=== PATIENT | male | born 1945 | race Two or more races ===

== ENCOUNTER 2024-09-23 20:15 | Emergency (ER) | payer MEDICARE, OTHER, SELFPAY ==
[2024-09-23 20:18] VITALS: BP 181/88
--- NOTE | 2024-09-23 21:19 | ED.MUSCINJ ---
HPI-Injury
General
Chief Complaint: Musculo-Skeletal Complaint
Source: patient
Time Seen by Provider: 09/23/24 21:12
History of Present Illness-Injury
Initial Injury comments:
79yo right hand dominant male presenting with his son for evaluation after a fall 3 hours ago. 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 He landed on his L arm. He denies any head strike or LOC.
Patient is reporting left shoulder and elbow pain. No paresthesias. No headache, neck pain, back pain, or other complaints. Unknown last Tdap. He is not on any blood thinners.
Phy Exam
General Physical Exam
General Presentation: well appearing and no apparent distress
General age: appears stated age
General Skin: warm and dry
General Habitus: normal
General Mental: alert
ENT Exam
ENT Exam: normocephalic
Additional ENT: No external signs of head trauma. No C spine tenderness.
Pulmonary Exam
Pulmonary Exam: lungs clear, no respiratory distress, no crackles and no wheezing
Gastrointestinal Exam
Gastrointestinal Exam: non tender, soft and non distended
[place] Coma Scale
Eye Opening: Spontaneous
Verbal Response: Oriented
Motor Response: Obeys Commands
GCS Total Score: 15
Musculoskeletal Exam
Musculoskeletal Exam: other (L shoulder: No deformity or ecchymosis. No tenderness to palpation of the joint. ROM decreased 2/2 pain. ROM of elbow intact. 2+ radial pulse and sensation intact.)
Skin Exam
Skin Exam: normal color, warm/dry and other (Skin tear noted above L elbow)
Psychiatric Exam
Psychiatric Exam: normal mood/affect
Injury Course
Orders/Labs/Results
Orders:
Orders
09/23/24 21:19
CR Elbow - Left Min 3 Views Urgent
Comment:
Reason For Exam: Pain, fall
CR Humerus - Left Min 2 Views* Urgent
Comment:
Reason For Exam: Pain, fall
CR Shoulder - Left Min 2 View* Urgent
Comment:
Reason For Exam: Pain, fall
09/23/24 22:00
Tetanus/Diphth/Acelpertussis [Adacel] 0.5 ml IM .ONCE ONE
MDM/Problems Addressed
Differential Diagnosis Includes:
79yoM here with L shoulder pain after a mechanical fall. Also sustained a skin tear above the L elbow. No head injury or LOC. No deformity on exam. ROM decreased 2/2 pain. LUE is neurovascularly intact. Differential diagnosis includes but is not
limited to: fracture, dislocation, contusion, sprain, strain
Initial ED plan: Check L shoulder, humerus, and elbow x-rays. Update Tdap.
*Critical Care Note
Total Time (30-74mins, 75-104mins- exclusive of procedures): Not Applicable
Update Note
Update Note:
X-rays are negative for fractures. Supportive care discussed. Advised f/u with orthopedics if symptoms persist. He was discharged in stable condition with his son.
ED Attending Note
-
Portions of this chart may have been created with voice recognition software.� Occasional wrong word or��sound alike� substitutions may have occurred due to the inherent limitations of voice recognition software.
Discharge Plan
Departure
Patient Disposition: Home (Routine Discharge)
Date of Disposition: 09/23/24
Time of Disposition: 22:34
Patient with high blood pressure during this ER visit?: Yes
Discharge Problem:
Fall from slip, trip, or stumble, Left shoulder pain, Skin tear of left upper extremity
Instructions: Shoulder Pain ED
Referrals:
NONE,* [Family Provider] -
Leonardo Carbone MD [Active] -
Activity Restrictions/Additional Instructions:
Apply ice to affected area. Take Tylenol as needed for pain.
Please follow-up with orthopedics if symptoms persist.
Interventions
Interventions:
*Risk Screen - Suicide Last Done: 09/23/24 21:36
*General Assessment Last Done: 09/23/24 21:36
*Neglect/Abuse Screening Last Done: 09/23/24 21:36
ED- Fall Risk Assessment Last Done: 09/23/24 22:57
*ED COVID-19 Vaccine History Last Done: 09/23/24 21:36
*Nursing Disposition Last Done: 09/23/24 22:57
ED-Musculoskeletal Assessment Last Done: 09/23/24 21:36
Discharge Date and Time
Discharge Date/Time: 09/23/24 22:59
Print Language: BULGARIAN
[2024-09-23] MEDS: ADACEL 0.5 ML IM (22:11)
== END 2024-09-23 22:59 | disposition home or self-care (01) ==
LOC: EMR 20:15
PROVIDERS: EMERGENCY PHYSICIAN Emergency Medicine
DX: M25.522 Pain in left elbow (principal); S41.112A Laceration without foreign body of left upper arm, initial encounter; W01.0XXA Fall on same level from slipping, tripping and stumbling without subsequent striking against object, initial encounter; Z23 Encounter for immunization
CPT/HCPCS: 99283; 90471; 73030; 73060; 73080; 90715

== ENCOUNTER 2024-09-25 08:05 | Emergency (ER) | payer MEDICARE, OTHER, SELFPAY ==
[2024-09-25 08:22] VITALS: BP 151/68
--- NOTE | 2024-09-25 08:34 | ED.GENMED ---
History of Present Illness
General
Chief Complaint: Musculo-Skeletal Complaint
Source: patient
Exam Limitations: none
Time Seen by Provider: 09/25/24 08:26
History of Present Illness
History of Present Illness:
Patient tripped and fell days ago. Initially had pain at the left shoulder and proximal arm. These x-rays were unremarkable. However early this morning developed left wrist pain and swelling. No other injury or complaint. Denies chest pain
shortness of breath abdominal pain neck pain or
Past History
Past History
ED Past Medical History: HTN and Other (Prostatic hypertrophy)
ED Past Surgical History: Orthopedic and Other (Melanoma surgery mastoid surgery)
Review of Systems
Review of Systems
All Other Systems: Not applicable
Respiratory: Reports no symptoms
Cardiac: Reports no symptoms
ABD/GI: Reports no symptoms
Phy Exam
Physical Exam
Physical Exam:
General: Nontoxic appearing in no distress
Skin: Warm and dry, no rash
Neuro: Alert, nontoxic, grossly nonfocal
Psychiatric: Good eye contact and appropriate
Musculoskeletal: Patient unable to abduct the left shoulder. No tenderness. No clavicle tenderness. No AC tenderness. No humerus tenderness. No elbow tenderness. Good distal pulses and color. Swelling and tenderness of the left wrist mostly
mid wrist. Hand nontender. Small bandage to the left thumb from a previous basal cell. However no surrounding erythema or drainage.
Course
Orders/Labs/Results
Orders:
Orders
09/25/24 08:33
Wrist, Left 3 Views CR [CR Wrist - Left Min 3 Views] Urgent
Comment:
Reason For Exam: trauma
09/25/24 09:22
Hydrocodone 5/APAP 325 [[place] 5/325] 1 tablet PO NOW STA
09/25/24 09:24
Volar Left-Treatment ONCE
Vital Signs
Initial and Last Documented VS:
Initial Vital Signs
Temp Pulse Resp BP Pulse Ox
98.6 F 71 18 151/68 98
09/25/24 08:22 09/25/24 08:22 09/25/24 08:22 09/25/24 08:22 09/25/24 08:22
Last Documented Vital Signs
Temp Pulse Resp BP Pulse Ox
98.6 F 64 20 144/69 96
09/25/24 08:22 09/25/24 09:57 09/25/24 09:57 09/25/24 09:57 09/25/24 09:57
MDM/Problems Addressed
Differential Diagnosis Includes:
Patient will have an x-ray done of the left wrist.. In addition clinically he has a rotator cuff tear to the left shoulder that will require orthopedic follow-up
*Radiology
Radiology exam reviewed: preliminary read by ED provider (Chip fracture triquetrum)
*Pulse Oximetry
Patient hypoxic: no
*Critical Care Note
Total Time (30-74mins, 75-104mins- exclusive of procedures): Not Applicable
Update Note
Update Note:
Rotator cuff tear clinically. Triquetral fracture. Splint and follow-up
ED Attending Note
-
Portions of this chart may have been created with voice recognition software.� Occasional wrong word or��sound alike� substitutions may have occurred due to the inherent limitations of voice recognition software.
Discharge Plan
Departure
Patient Disposition: Home (Routine Discharge)
Date of Disposition: 09/25/24
Time of Disposition: 09:30
Patient with high blood pressure during this ER visit?: Yes
Discharge Problem:
Wrist fracture left, Left rotator cuff tear
Instructions: Rotator Cuff Injury (DC), Wrist fracture
Prescriptions:
New
hydrocodone-acetaminophen 5-300 mg tablet
1 tab PO Q6H PRN (Reason: Pain) Qty: 14 0RF
Referrals:
Yeimi Rodriguez I., DO [Active] - Follow up in 2-3 days
Nayla Barnes MD [Family Provider] -
Interventions
Interventions:
*Risk Screen - Suicide Last Done: 09/25/24 08:22
*General Assessment Last Done: 09/25/24 08:22
*Neglect/Abuse Screening Last Done: 09/25/24 08:22
ED- Fall Risk Assessment Last Done: 09/25/24 09:57
*ED COVID-19 Vaccine History Last Done: 09/25/24 09:24
*Nursing Disposition Last Done: 09/25/24 09:57
ED-Musculoskeletal Assessment Last Done: 09/25/24 09:25
Discharge Date and Time
Discharge Date/Time: 09/25/24 09:58
Print Language: SYRIAC
[2024-09-25 09:23] VITALS: BMI 45.3
[2024-09-25] MEDS: NORCO 5/325 1 TABLET PO (09:38)
[2024-09-25 09:57] VITALS: BP 144/69
== END 2024-09-25 09:58 | disposition home or self-care (01) ==
LOC: EMR 08:05
PROVIDERS: EMERGENCY PHYSICIAN Emergency Medicine; FAMILY PHYSICIAN Internal Medicine
DX: S62.112A Displaced fracture of triquetrum [cuneiform] bone, left wrist, initial encounter for closed fracture (principal); S46.012A Strain of muscle(s) and tendon(s) of the rotator cuff of left shoulder, initial encounter; W01.0XXA Fall on same level from slipping, tripping and stumbling without subsequent striking against object, initial encounter; I10 Essential (primary) hypertension; N40.0 Benign prostatic hyperplasia without lower urinary tract symptoms; Z85.820 Personal history of malignant melanoma of skin
CPT/HCPCS: 99283; 29125; 73110

== ENCOUNTER 2025-04-23 02:22 | Inpatient (IN) | payer MEDICARE, OTHER, SELFPAY ==
[2025-04-22 19:49] VITALS: BP 155/92
[2025-04-22 22:30] VITALS: BP 146/102
--- NOTE | 2025-04-22 22:30 | ED.GENMED ---
History of Present Illness
General
Chief Complaint: Cough
Source: patient
Exam Limitations: none
Time Seen by Provider: 04/22/25 22:07
Nursing documentation reviewed up to this point in time: agreed with
History of Present Illness
History of Present Illness:
This is an 80-year-old gentleman with history of hypertension, odz-mzovzbs-rdxkwilxo diabetes, BPH, hyperlipidemia, melanoma as well as osteoarthritis. He underwent melanoma removal from his back September 2020 for and is currently receiving monthly
injections of Opdivo, has completed 7 of 12 monthly rounds.
He complains of cough, congestion that began 2 days ago, progressively worse with onset of moderate dyspnea on exertion today. He denies fever nor chills, no chest pain or palpitations. No history of similar episodes in the past. Cough
occasionally productive of yellowish phlegm. He denies hemoptysis.
Evaluated at urgent care today and underwent chest x-ray reportedly showing pneumonia, was sent to the ED for further evaluation.
He has chronic bilateral lower extremity edema left leg greater than right and suffered an abrasion to his left anterior lower dale perhaps 2 weeks ago. Evaluated by his PCP and then shade matcher and was placed on a course of Keflex as well as
prednisone. Keflex finished this past weekend and prednisone completed Friday, 4 days ago. He notes elevated blood sugars while on prednisone but otherwise his diabetes has been well-controlled with most recent hemoglobin A1c of 6.6.
No history of chronic lung disease, lifelong non-smoker.
No history of CAD nor arrhythmia.
His daily medications include: Amlodipine, lisinopril, hydrochlorothiazide, metformin, hydralazine, finasteride, alfuzosin, a statin.
Past History
Past History
ED Past Medical History: Cancer (Melanoma removal from back September 2024.), HTN, Hypercholesterolemia and Other (Prostatic hypertrophy; osteoarthritis); Negative Arrthythmia, Asthma, CAD, CHF or COPD
ED Past Surgical History: Orthopedic (Left total knee replacement) and Other (Melanoma excision from back September 2024; mastoid surgery)
Social History
Tobacco: Non-smoker
Alcohol: None
Personal:
Living: with family
Employment: Retired
Family History
Family History: Other (Noncontributory)
Phy Exam
Physical Exam
Physical Exam:
GENERAL: 80-year-old overweight gentleman appears his stated age, bright and alert, pleasant, appears in no acute distress. Frequent moist nonproductive cough is noted. Mild resting tachypnea but able to speak in full sentences. Room air pulse ox
at rest 92%.
EYE: pupils equal and reactive. anicteric
NECK: Supple, nontender, no meningismus, no significant adenopathy. Mild JVD.
ENT: oral mucosa is moist. No rhinorrhea.
CARDIAC: Irregularly irregular at a rate of 90, no murmur.
LUNGS: Mild resting tachypnea, coarse expiratory wheezing throughout as well as fine rhonchi throughout.
ABDOMEN: Rotund, soft, nondistended, without focal tenderness, normoactive BS.
NEUROLOGICAL: Alert and oriented x3, no focal neuro deficits.
SKIN: Warm and dry, normal color, No rash.
MUSCULOSKELETAL: No clubbing or cyanosis, chronic appearing nonpitting edema bilateral lower extremities. 2 cm superficial dry ulcerations noted bilateral lower anterior shins. No surrounding erythema, no drainage, no tenderness. Peripheral
pulses are full and equal b/l. No palpable tenderness.
PSYCH: Normal and appropriate interaction.
Sepsis
Sepsis Screening
Sepsis Assessment: Sepsis Ruled Out
Sepsis Screen
Sepsis Screen: Sepsis Ruled Out
Date: 04/23/25
Time: 06:34
Course
Orders/Labs/Results
Orders:
Orders
04/22/25 19:53
EKG [Electrocardiogram (*1)] Stat
Reason for Study: Chest Pain
EKG- Treatment ONCE
04/22/25 22:29
Sputum Culture [Respiratory Culture/Gram Stain] Urgent
REBECCA Source: Sputum
Specimen Description:
Ipratropium/Albuterol Sulfate [Duoneb] 3 ml INH R NOW STA
04/22/25 22:33
Complete Blood Count/With Diff Urgent
Comprehensive Metabolic Panel Urgent
Lactic Acid Urgent
NT-proBNP Urgent
Troponin I Urgent
04/23/25 00:00
CR Chest - 2 Views Urgent
Reason For Exam: COUGH, SOB X 3 DAYS
04/23/25 00:54
Azithromycin [Zithromax] 500 mg PO NOW STA
CefTRIAXone [Rocephin] 2,000 mg IV NOW STA
Dexamethasone Sod Phosphate [Decadron] 10 mg IV NOW STA
Furosemide [Lasix] 40 mg IV NOW STA
Potassium Chloride [KCl] 40 meq PO NOW STA
04/23/25 02:00
Flush (0.9% Sodium Chloride) [Flush (Nss)] See Dose Instructions IV PER PROTOCOL
04/23/25 02:07
Admit/Transfer Patient As Directed
Co-Sign Provider:
Level of Care: Inpatient admission
Assign to:: Telemetry
Physician / Group: Ricky
Diagnosis: Pneumonia, A-Fib
Reason for Telemetry: Arrhythmia
Date to Stop Telemetry: 04/26/25
Time to Stop Telemetry: 11:00
Reason for Hospitalization: Pneumonia, A-Fib
Expected length of stay greater than two midnights?: Yes
ELOS- Estimated Length of Stay in days: 3
I certify the patient meets the requirements for IP care: Yes
PRN Pain Medication Management As Directed
May give lesser potent ordered pain med per pt: Yes
preference::
Protocol:: Medication orders for pain may be administered in a
manner that supports deferring to patient preference
when the pt is:
- Requesting an ordered lesser potent pain medication.
Least to most potent pain medications are defined
as: acetaminophen < NSAID < tramadol < opioids
(morphine, oxycodone, hydromorphone).
- Requesting a lesser dose of the same medication IF
ORDERED.
- Requesting a less intrusive route of administration
if both routes are prescribed by the provider (PO <
IV).
04/23/25 02:08
Code Status As Directed
Resuscitation Status: Full Code
04/23/25 04:25
Troponin I Q6H
Acetaminophen [Tylenol] 650 mg PO Q4HPRN PRN
Albuterol Nebs [Ventolin Nebules] 2.5 mg INH R Q4HPRN PRN
Dextrose 50%-Water [Dextrose 50% Syringe] 12.5 grams IV [id number] PRN
Glucagon [GlucaGen] 1 mg IM PRN PRN
04/23/25 04:25
Echo 2D MMode Doppler [Echo 2D MMode Color/Doppler] Routine
Reason for Study: A-Fib, SOB
CARDIOLOGY CONSULT Routine
Consulting Provider: Jose Manuel Pearl
Was physician already notified: No
Reason for consult: New A-Fib
Consult Notification Routine
Specialty to Notify: Cardiology
TSH Reflex To Free T4 Routine
Activity As Directed
Activity Level: Ambulate
With Assistance
Bedside Glucose Monitoring As Directed
Frequency: AC&HS
Additional Instructions:: Change to q6h if pt on TPN, tube feeding or not eating
EKG with chest pain [ECG as needed] As Directed
ECG as needed for:: Chest Pain
I/O [Intake/ Output] As Directed
Frequency: Per unit guidelines
Pneumatic Compression Sleeves As Directed
Type: Knee high
Vital Signs As Directed
Frequency: Per unit guidelines
Weight As Directed
Frequency: Daily
Chest PT [Rx Chest Pt] [RESP] Routine
Special Instructions: BID
Oxygen Therapy [O2 Therapy] [RESP] Routine
Titrate/Wean O2 to maintain O2 sat greater than (%): 94
DX Deep Vein Thrombosis Video Routine
04/23/25 06:00
EKG [Electrocardiogram (*1)] IN AM
Reason for Study: Chest Pain
Regular
At Your Request: Full Participation
Fluid Restriction: 1440 mL/day (48 oz)
Basic Metabolic Panel IN AM
Cardiovascular Evaluation IN AM
Complete Blood Count/No Diff IN AM
Glycohemoglobin (HgbA1c) IN AM
04/23/25 07:30
Insulin Aspart Corrective Low [Novolog Flexpen-Low Resistance] See Protocol SC AC
04/23/25 08:00
Apixaban [Eliquis] 5 mg PO BID
Doxycycline [Vibramycin] 100 mg PO Q12
Finasteride [Proscar] 5 mg PO DAILY
Furosemide [Lasix] 20 mg IV BID AT 0800,1600
Metoprolol Xl [Toprol Xl] 25 mg PO BID
Potassium Chloride Powder [Klor-Con] 20 meq PO BID
Tamsulosin [Flomax] 0.4 mg PO DAILY
04/23/25 10:25
Troponin I Q6H
04/23/25 16:25
Troponin I Q6H
04/24/25 00:00
CefTRIAXone [Rocephin] 1,000 mg IV Q24H
04/26/25 11:00
DC Protocol for Telemetry ONCE
Abnormal Lab Results
04/22/25
22:33
RBC 4.59 L 10^6/uL
(4.70-6.10)
Hgb 12.3 L g/dL
(13.0-18.0)
Hct 38.8 L %
(39.0-52.0)
MCH 26.8 L pg
(27.0-31.0)
MCHC 31.7 L g/dL
(33.0-37.0)
RDW 17.1 H %
(11.5-14.5)
Abs Immat Gran (auto) 0.1 H 10^3/uL
(0-0.05)
Absolute Monos (auto) 0.9 H 10^3/uL
(0.1-0.6)
Immature Gran % 1.0 H %
(0-0.5)
Lymphocytes % 15.1 L %
(20.5-51.1)
Monocytes % 10.6 H %
(1.7-9.3)
Eosinophils % 6.2 H %
(0-6)
Potassium 3.4 L mmol/L
(3.5-5.1)
BUN 24 H mg/dl
(9-20)
Glucose 141 H mg/dl
(70-99)
04/22/25 22:33
04/22/25 22:33
Vital Signs
Initial and Last Documented VS:
Initial Vital Signs
Temp Pulse Resp BP Pulse Ox
99.1 F 85 20 155/92 93
04/22/25 19:49 04/22/25 19:49 04/22/25 19:49 04/22/25 19:49 04/22/25 19:49
Last Documented Vital Signs
Temp Pulse Resp BP Pulse Ox
98.6 F 105 13 152/94 94
04/23/25 03:00 04/23/25 03:18 04/23/25 03:18 04/23/25 03:00 04/23/25 03:00
MDM/Problems Addressed
Differential Diagnosis Includes:
Concern for pneumonia, CHF, asthmatic bronchitis.
Borderline low-grade fever noted in triage, upon recheck oral temperature 98.6 �F. Patient has not had subjective fevers.
EKG shows atrial fibrillation with controlled ventricular response. Patient has no prior history of A-fib�at this point unclear as to onset of A-fib.
Borderline hypoxia with pulse ox at rest of 92%. Significant dyspnea with minimal exertion.
Patient noted to have bilateral lower extremity edema but chronic and unchanged. No prior hx of thromboembolism. DVT/PE unlikely.
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
Chronic conditions affecting care: DM, HTN and Cancer
*Radiology
Radiology exam reviewed: preliminary read by ED provider (Chest x-ray concerning for subtle infiltrate right base versus increased interstitial markings primarily bilateral lower lobes.)
*Pulse Oximetry
Patient hypoxic: no
Comment: Borderline hypoxia
*EKG
Interpreted by ED Provider?: Yes
Interpretation: abnormal
Comparison EKG: no comparison EKG present
Rate: normal
Rhythm: a-fib
[place]: left axis deviation
Interval: normal QT interval
QRS Pattern: normal QRS
Ischemia: non-specific ST changes
*[employer] Representative Interpretation
Rate: normal
Interpretation: abnormal
Rhythm: a-fib
*Critical Care Note
Total Time (30-74mins, 75-104mins- exclusive of procedures): Not Applicable
Update Note
Update Note:
Patient feeling improved after nebulizer treatment. Much less cough.
Continues with significant expiratory wheezing throughout bilaterally.
CBC shows normal white blood cell count, mild anemia. Unremarkable chemistries.
Troponin is normal at 0.013.
BNP elevated at 1580.
Chest x-ray concerning for an infiltrate in the right base versus increased interstitial markings most noted in the bases more so on the right than the left which could be element of CHF.
Will give an IV dose of Decadron for wheezing, initiate antibiotics for potential community-acquired pneumonia and will give an IV dose of Lasix for what I suspect is mild CHF.
Potassium 3.4, will replete orally prior to Lasix administration.
Will admit to hospitalist service.
ED Attending Note
-
Portions of this chart may have been created with voice recognition software.� Occasional wrong word or��sound alike� substitutions may have occurred due to the inherent limitations of voice recognition software.
Discharge Plan
Departure
Patient Disposition: Admit
Date of Disposition: 04/23/25
Time of Disposition: 01:01
Admit to: Telemetry
Admit to doctor: Ricky
Presentation/result/management discussed w/ accepting MD/DO: Hospitalist
Discharge Problem:
Acute bronchitis and bronchiolitis, Atrial fibrillation with controlled ventricular rate, CAP (community acquired pneumonia)
Interventions
Interventions:
*Risk Screen - Suicide Last Done: 04/22/25 19:49
*General Assessment Last Done: 04/22/25 22:54
*Neglect/Abuse Screening Last Done: 04/22/25 19:49
*ED- Fall Risk Assessment Last Done: 04/22/25 22:54
*ED COVID-19 Vaccine History Last Done: 04/22/25 22:54
*Nursing Disposition Last Done: 04/23/25 03:30
ED- Pulmonary Assessment Last Done: 04/22/25 23:00
Discharge Date and Time
Discharge Date/Time: 04/23/25 03:34
[2025-04-22 22:51] LABS: % Eosinophils 6.2 % (0-6); % Lymphocytes 15.1 % (20.5-51.1); % Monocytes 10.6 % (1.7-9.3); % Neutrophils 66.1 % (42.2-75.2); Absolute Basophils 0.1 10^3/uL (0-0.2); Absolute Eosinophils 0.5 10^3/uL (0-0.7); Absolute Immature Granulocytes 0.1 10^3/uL (0-0.05); Absolute Lymphocytes 1.2 10^3/uL (1.2-3.4); Absolute Monocytes 0.9 10^3/uL (0.1-0.6); Absolute Neutrophils 5.4 10^3/uL (1.4-6.5); Hematocrit 38.8 % (39.0-52.0); Hemoglobin 12.3 g/dL (13.0-18.0); Mean Corp Hgb Conc. 31.7 g/dL (33.0-37.0); Mean Corpuscular Hgb 26.8 pg (27.0-31.0); Mean Corpuscular Volume 84.5 fL (80.0-94.0); Mean Platelet Volume 9.1 fL (7.4-10.4); Nucleated Red Blood Cells % 0 % (-); Platelet Count 241 10^3/uL (130-400); Red Blood Cell Count 4.59 10^6/uL (4.70-6.10); Red Cell Dist. Width 17.1 % (11.5-14.5); White Blood Cell Count 8.1 10^3/uL (4.8-10.8)
[2025-04-22] MEDS: DUONEB 3 ML INH (22:52)
[2025-04-22 22:53] VITALS: BMI 44.3
[2025-04-22 22:54] VITALS: BP 160/93
[2025-04-22 23:00] VITALS: BP 150/84
[2025-04-22 23:03] LABS: ALT (SGPT) 20 U/L (0-50); AST (SGOT) 21 U/L (17-59); Albumin 3.8 g/dl (3.5-5.0); Alkaline Phosphatase 61 U/L (38-126); Blood Urea Nitrogen 24 mg/dl (9-20); Calcium 9.3 mg/dl (8.4-10.2); Carbon Dioxide 30 mmol/L (22-30); Chloride 104 mmol/L (98-107); Estimated Creatinine Clearance 71 ml/min; Glucose 141 mg/dl (70-99); Lactic Acid 0.8 mmol/L (0.7-2.0); Potassium 3.4 mmol/L (3.5-5.1); Sodium 139 mmol/L (135-145); Total Bilirubin 0.5 mg/dl (0.2-1.3); Total Protein 6.5 g/dl (6.3-8.2); eGFR > 60.00
[2025-04-22 23:14] LABS: NT-proBNP 1580 pg/ml; Troponin I 0.013 ng/ml
[2025-04-23] VITALS (9 sets, daily range): BP systolic 127–153; BP diastolic 71–95; BMI 43.6
[2025-04-23] MEDS: KCL 40 MEQ PO (01:10)
[2025-04-23] MEDS: ROCEPHIN 2000 MG IV (01:10)
[2025-04-23] MEDS: ZITHROMAX 500 MG PO (01:10)
[2025-04-23] MEDS: LASIX 40 MG IV (01:11)
[2025-04-23] MEDS: DECADRON 10 MG IV (01:11)
--- NOTE | 2025-04-23 02:12 | HPS.HSE ---
Family Physician
-
Family Physician: NOT KNOW UNKNOWN - PT DOES
Chief Complaint
-
Cough, SOB
History of Present Illness
Patient is an 80y M with PMH significant for hypertension, 'pre-DM' and melanoma on Opdivo who presents to ED complaining of cough and SOB. Patient states that he started with runny nose and sore throat on Friday. His symptoms progressed to
include cough productive of yellow / green mucus and some dyspnea with exertion / activity. No fevers / chills. No GI / symptoms. His cough became less productive later in the week and his dyspnea seemed to worsen.
With persistent cough and SPENCE he presented to the ED for further evaluation.
Patient denies any recent sick contacts.
His last dose of Opdivo was Friday.
On arrival to the ED today, patient was noted to be in A-Fib. He denies any prior history of this. He denies any palpitations.
Medical History
Past Medical History
Past Medical History: Reports Other
Additional Past Medical History:
Melanoma
Hypertension
Diet-Controlled DM-II
BPH
Morbid Obesity
Chronic Lymphedema
Past Surgical History: Reports Other
Additional Past Surgical History:
T&A
Right Mastoiditis / Resection
Left Eye Surgery
Left TKA
Melanoma Excision (08/2024)
Social History
Tobacco: Non-smoker
Alcohol: Occasional
Drug: None
Family History
Family History: Not pertinent
Allergies / Home Medications
Allergies reflects when Allergies were last updated in [facility].
Home Medications with original date entered in [facility]
Allergy/Medication List:
Allergies
Allergy/AdvReac Type Severity Reaction Status Date / Time
No Known Allergies Allergy Verified 04/22/25 19:51
Home Medications
alfuzosin 10 mg tablet,extended release 24 hr 10 mg PO DAILY 04/23/25
amlodipine 04/23/25
finasteride 5 mg tablet 5 mg PO DAILY 04/23/25
hydralazine TID 04/23/25
hydrochlorothiazide 04/23/25
lisinopril 04/23/25
metformin BID 04/23/25
'statin' at bedtime daily
Patient does not know doses of most medications.
Review of Systems
-
History Source: Patient
A 12 point ROS was completed and negative except as noted: Yes
Constitutional: Denies Fever, Fatigue or Chills
EENT: Reports Sore Throat and Runny Nose
Respiratory: Reports Cough and Trouble Breathing; Denies Hemoptysis
Cardiac: Reports Chest Pain (b/l chest pain with coughing.); Denies Diaphoresis, Palpitations or Syncope
Abdomen/GI: Denies Abdominal Pain, Nausea, Vomiting or Diarrhea
: Denies Dysuria, Frequency or Flank Pain
Musculoskeletal: Reports Edema (chronic LE lymphedema); Denies Joint Pain
Neurological: Denies Dizzy or Headache
Physical Exam
Vital Signs
Vital Signs
Temp Pulse Resp BP Pulse Ox
99.1 F 92 18 146/89 95
04/22/25 19:49 04/23/25 01:11 04/22/25 22:45 04/23/25 01:11 04/22/25 22:45
Physical Exam
General: Other (80y M in no acute distress.)
HEENT: Moist mucous membranes and Other (Neck supple. Eye asymmetry s/p childhood surgery. Post-op changes at R mastoid / ear from remote surgery.)
Respiratory: Other (Diffuse rhonchi / wheezing through all lung strong. Some improvement with cough.)
Cardiac: S1/S2 and Irregular Rhythm; No Murmur
GI: Soft, Non Tender, Non Distended and Normal Bowel Sounds
Musculoskeletal: No Clubbing, No Cyanosis and Other (3+ pitting edema b/l LEs.)
Neuro: AO x 3
Laboratory Results
-
04/22/25:
04/22/25:
Laboratory Results
Lactic Acid 0.8 mmol/L (0.7-2.0) 04/22/25:
Total Bilirubin 0.5 mg/dl (0.2-1.3) 04/22/25:
AST 21 U/L (17-59) 04/22/25:
ALT 20 U/L (0-50) 04/22/25:
Alkaline Phosphatase 61 U/L (38-126) 04/22/25:
Troponin I 0.013 ng/ml 04/22/25
Impression/Plan
-
A/P: Patient is an 80y M with PMH significant for hypertension, DM-II and melanoma who presents to ED c/o 5 days of sore throat, cough and SPENCE.
R Pneumonia
- Admit for further evaluation and treatment.
- Symptoms sound infectious with preceding rhinorrhea, sore throat, etc.
- CXR with R lower lung and R paratracheal opacities suggesting pneumonia.
- Abx with ceftriaxone / doxycycline for now.
- Supportive care including nebs, etc.
- Follow for clinical improvement.
Atrial Fibrillation - New
- Patient in A-Fib on arrival to the ED. ? duration.
- Heart rates not very uncontrolled - staying near 100 bpm.
- Begin metoprolol at low dose for now and titrate as needed.
- Begin Eliquis for stroke risk reduction.
- Cardiology evaluation for additional recommendations.
- Check Echo.
Chronic Lymphedema
? CHF
- Chronic LE edema, elevated BNP, dyspnea / wheezing.
- ? degree of CHF - perhaps triggered / exacerbated by A-Fib.
- Check Echo as noted above.
- Trial of IV Lasix for now and follow I/Os, daily weights, etc.
Benign Hypertension
- Stable. Hold usual meds with new addition of metoprolol / Lasix.
- Adjust regimen as needed.
DM-II
- Not on any meds at home at present.
- SSI as needed during hospital stay.
- Update A1C.
Mild Hypokalemia
- Begin potassium supplementation while on Lasix.
BPH
- Stable. Continue finasteride / alfuzosin.
- Bladder scan protocol.
DVT Prophylaxis: Eliquis
Code Status: Full
[2025-04-23 06:51] LABS: Hematocrit 38.7 % (39.0-52.0); Hemoglobin 12.8 g/dL (13.0-18.0); Mean Corp Hgb Conc. 33.1 g/dL (33.0-37.0); Mean Corpuscular Hgb 27.1 pg (27.0-31.0); Mean Platelet Volume 9.2 fL (7.4-10.4); Platelet Count 236 10^3/uL (130-400); Red Blood Cell Count 4.72 10^6/uL (4.70-6.10); Red Cell Dist. Width 16.8 % (11.5-14.5); White Blood Cell Count 7.9 10^3/uL (4.8-10.8)
--- NOTE | 2025-04-23 07:13 | CON.CAR ---
Addendum entered and electronically signed by Laurent Hurtado MD 04/23/25 10:47:
Patient seen, interviewed and examined by me.
Well-appearing, no acute distress
Irregular rate and rhythm with normal S1 and S2, no S3 no S4. There is a grade 1/6 apical holosystolic murmur and no rubs. PMI is normally placed.
Lungs are clear to auscultation bilaterally without wheezes rales or rhonchi.
Abdomen is obese soft nontender nondistended with normoactive bowel sounds
Extremities show +2-3 edema bilaterally no clubbing or cyanosis.
Neurologic exam is grossly nonfocal.
Newly diagnosed atrial fibrillation with poorly controlled ventricular rates, duration of atrial fibrillation unknown
Acute congestive heart failure with unknown ejection fraction
Suspected community-acquired pneumonia
Type 2 diabetes
Chronic lower extremity edema
Hypertension
Newly diagnosed atrial fibrillation with rates that are rapid at times, symptomatic and likely precipitating congestive heart failure.
He very likely will do best with rhythm control as opposed to rate control
Had a long discussion with the patient regarding rhythm control options. Importantly atrial fibrillation is of unknown duration and we have just started anticoagulation. Therefore our options for rate control would be to wait for at least 3 to 4
weeks of uninterrupted anticoagulation and plan for cardioversion or since she is symptomatic move more quickly towards cardioversion with transesophageal echo and cardioversion. Patient prefers to move forward with transesophageal echo and
cardioversion, therefore we will plan the following:
- Maintain Eliquis 5 mg twice daily
- Transesophageal echo and cardioversion on Friday
- Initiate amiodarone 200 mg 3 times daily
I would envision maintaining amiodarone while we get further information regarding any underlying structural heart disease and while we reassess him as an outpatient (AF ablation vs AAD Rx)
- Given his rates have been rather rapid we will also increase Toprol-XL to 50 mg twice daily
He does have a component of congestive heart failure with unknown ejection fraction
- IV diuresis with Lasix 20 mg IV BID.
- Will get a sense of any underlying structural heart disease at time of SID on Friday
Original Note:
Consultation
Consultation Request
Date/Time Consultation Requested: 04/23/2025 at 0425
Date/Time Consultation Performed: 04/23/2025 at 0734
Requesting Provider: Dr. Ascencio
Performing Provider: Dr. Laurent Hurtado
Reason for Consultation: Possible CHF, newly diagnosed Afib of unclear duration
Medical History
-
History of Present Illness:
Patient came to [facility] ER yesterday with a productive cough and was found to be in new A-fib with evidence of PNA and was admitted, cardiology is now consulted. Patient says that he saw his PCP coming up on 2 weeks ago for increased LE edema and
wounds. He was told he needed to see a stock room manager immediately and was started on antibiotics. He says he saw the stock room manager who continued the antibiotics but also started him on a steroid. He felt as though his LE edema and wounds were
improving, but then he started with URI symptoms including runny nose and a sore throat. No fevers or chills. He seemed to improve from URI symptoms and then progressed to increased cough resulting in chest pain and then SPENCE. He went to an urgent
care last night who then sent him to the ER that he recalls of being at the urgent care he was very short of breath which was new and different. In our ER he was in A-fib without known history of A-fib. There was evidence of PNA on CXR and there
was some question of possible acute HF given the proBNP of 1580 although he has chronic LE edema related to his lymphedema.
PMH:
HTN
DM 2
Chronic lymphedema
Past Medical History
Past Medical History: Other (in HPI)
Past Surgical History: Orthopedic and Other (mastoid tumor resection at age 4)
Social History
Tobacco: Former Smoker
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
Drug: None
Personal:
Living: With Family
Family History
Family History: Other (mother with CVA at age 88)
Allergies / Home Medications
Allergy/AdvReac Type Severity Reaction Status Date / Time
No Known Allergies Allergy Verified 04/22/25 19:51
�Medication �Instructions �Recorded �Confirmed �Type
alfuzosin 10 mg tablet,extended 10 mg PO DAILY 04/23/25 04/23/25 History
release 24 hr
amlodipine 04/23/25 History
finasteride 5 mg tablet 5 mg PO DAILY 04/23/25 04/23/25 History
hydralazine TID 04/23/25 History
hydrochlorothiazide 04/23/25 History
lisinopril 04/23/25 History
metformin BID 04/23/25 History
above medication list independently confirmed with patient by me and he does not know doses of any of his medications
Review of Systems
-
History Source: Patient
All other systems: Negative unless noted
Physical Exam
Vital Signs
Temp Pulse Resp BP Pulse Ox
98.6 F 105 13 152/94 94
04/23/25 03:00 04/23/25 03:18 04/23/25 03:18 04/23/25 03:00 04/23/25 03:00
GEN: NAD. AAOx3
HEENT: EOMI, MMM, wearing glasses
LUNGS: RA. +productive cough with rhonchi and slight expiratory wheeze
CV: Afib on tele. Irreg irreg, S1/S2, no murmur
ABD: soft, BS+, NT, ND
EXT: +3 pitting B/L LE edema with multiple abrasions and possible venous stasis ulcers
NEURO: Gross non-focal
SKIN: No rash
Lab Results
04/23/25 06:21
Troponin I 0.013 ng/ml 04/22/25 22:33
Vhy-U-Anfxpbehlci Pept 1580 pg/ml 04/22/25 22:33
Impression / Plan
-
PCP: Dr. Barnes
Card: None
Impression:
Admitted with PNA and new A-fib 04/22/2025
CAP
Newly diagnosed paroxysmal atrial fibrillation of unclear duration
New start to chronic Eliquis therapy
Possible acute HF unknown EF
HTN
DM 2
Chronic lymphedema
Hypokalemia
Plan:
-Patient came to [facility] ER yesterday with a productive cough and was found to be in new A-fib with evidence of PNA and was admitted, cardiology is now consulted. Patient says that he saw his PCP coming up on 2 weeks ago for increased LE edema and
wounds. He was told he needed to see a stock room manager immediately and was started on antibiotics. He says he saw the stock room manager who continued the antibiotics but also started him on a steroid. He felt as though his LE edema and wounds were
improving, but then he started with URI symptoms including runny nose and a sore throat. No fevers or chills. He seemed to improve from URI symptoms and then progressed to increased cough resulting in chest pain and then SPENCE. He went to an urgent
care last night who then sent him to the ER that he recalls of being at the urgent care he was very short of breath which was new and different. In our ER he was in A-fib without known history of A-fib. There was evidence of PNA on CXR and there
was some question of possible acute HF given the proBNP of 1580 although he has chronic LE edema related to his lymphedema.
-ECG reviewed by me is A-fib with controlled ventricular response at 84 bpm. Telemetry reviewed by me looks more like A-fib with RVR, HR consistently greater than 120.
-Patient does not have known h/o Afib, no palpitations and overall asymptomatic. Duration of Afib unclear, although saw PCP about 2 weeks ago and no concerns reported.
-Agree with Eliquis 5 mg BID (age 80, wt 122 kg, Cre 1.0). Will ask CM to check on cost, e-scribed to patient's pharmacy by me, but will need to figure out if he has a deductible to meet etc.
-Patient was not taking any AV tabby blockers prior to admission. Patient is new to Toprol XL 25 mg BID since admission HR not consistent lady less than 100 and BP 152/89 so we will increase Toprol XL to 50 mg BID.
-Also talked with patient about rate control versus rhythm control and we reviewed the scenario of inpatient SID/CV on Friday versus outpatient OAC x 4 weeks and then return for elective outpatient CV at that time. Will follow HR control efforts
and patient symptoms to determine best course of action.
-Possible acute HF unknown EF. Patient also has chronic LE lymphedema. Agree with attempt at IV diuresis with Lasix 20 mg IV BID. Patient was taking an unknown dose of HCTZ prior to admission.
[2025-04-23 07:16] LABS: Blood Urea Nitrogen 24 mg/dl (9-20); Calcium 9.1 mg/dl (8.4-10.2); Carbon Dioxide 29 mmol/L (22-30); Chloride 104 mmol/L (98-107); Estimated Creatinine Clearance 70 ml/min; Glucose 205 mg/dl (70-99); HDL Cholesterol 71 mg/dl; LDL Cholesterol, Calculated 50 mg/dl; Potassium 4.2 mmol/L (3.5-5.1); Sodium 141 mmol/L (135-145); Total Cholesterol 135 mg/dl (50-199); Triglyceride 71 mg/dl (10-149); Very Low Density Lipoprotein 14 mg/dl (0-30); eGFR > 60.00
[2025-04-23] MEDS: VIBRAMYCIN 100 MG PO ×2 (07:56→21:34)
[2025-04-23] MEDS: TOPROL XL 25 MG PO (07:56)
[2025-04-23] MEDS: FLOMAX 0.4 MG PO (07:56)
[2025-04-23] MEDS: PROSCAR 5 MG PO (07:56)
[2025-04-23] MEDS: KLOR-CON 20 MEQ PO ×2 (07:56→21:35)
[2025-04-23] MEDS: LASIX 20 MG IV ×2 (07:56→15:55)
[2025-04-23] MEDS: ELIQUIS 5 MG PO ×2 (07:56→21:35)
[2025-04-23 07:57] LABS: Glucose - Point of Care 200 mg/dl (70-99)
[2025-04-23] MEDS: NOVOLOG FLEXPEN-LOW RESISTANCE 2 UNITS SC (08:25)
[2025-04-23 09:49] LABS: Glycohemoglobin (HgbA1c) 6.7 % (4.0-5.6)
--- NOTE | 2025-04-23 09:54 | W.PN.UPDATE ---
Addendum entered and electronically signed by Anirudh Ascencio MD 04/24/25 11:32:
On 04/24/25, upon evaluating Mr Cboos, I realized that I mistakenly examined his roommate, [phone] on 04/23/25. This did not effect Mr. Cobos's plan on 04/23/25.
Original Note:
Update Note
Progress Note Update
Patient seen and examined after postmidnight admission. Patient reports his breathing is 'all right now.' Denies chest pain. Vital signs stable. No acute distress, appears chronically ill, awake alert and orient x 3, regular rate and rhythm,
normal S1-S2. Decreased breath sounds in the bases, left greater than right, positive bowel sounds, soft, nontender, nondistended. 2�3+ bilateral lower extremity edema.
Continue treatment plan as outlined in the H&P done on admission including antibiotics, IV diuretics, echocardiogram.
[2025-04-23 11:39] LABS: Glucose - Point of Care 273 mg/dl (70-99)
--- NOTE | 2025-04-23 11:41 | CM ---
Patient seen at beside with and son
IA completed
lives with in 2 story home, 4 steps to enter has stair glide to second floor
son lives a few houses away from patient
PLOF: Independent
DME: [facility]
Denies VN/has had outpatient rehab in past & stated has an appt next week at [facility]
Denies insecurities
PCP: Nayla Barnes
Pharmacy: [facility]
PLAN: home, no needs anticipated, CM to continue to follow
[2025-04-23] MEDS: PACERONE 200 MG PO ×3 (11:47→21:35)
[2025-04-23] MEDS: NOVOLOG FLEXPEN-LOW RESISTANCE 3 UNITS SC (11:48)
[2025-04-23 13:10] LABS: Troponin I < 0.012 ng/ml
[2025-04-23 16:28] LABS: Glucose - Point of Care 178 mg/dl (70-99)
[2025-04-23] MEDS: NOVOLOG FLEXPEN-LOW RESISTANCE 1 UNITS SC (16:57)
[2025-04-23] MEDS: TOPROL XL 50 MG PO (21:35)
[2025-04-23 21:42] LABS: Glucose - Point of Care 153 mg/dl (70-99)
[2025-04-24] MEDS: ROCEPHIN 1000 MG IV (00:44)
[2025-04-24] MEDS: STERILE WATER FOR INJECTION 10 ML IV (01:00)
[2025-04-24 03:00] VITALS: BP 149/96
[2025-04-24 06:00] VITALS: BMI 43.0
[2025-04-24 07:34] VITALS: BP 133/94
[2025-04-24 07:56] LABS: Glucose - Point of Care 140 mg/dl (70-99)
[2025-04-24] MEDS: NOVOLOG FLEXPEN-LOW RESISTANCE SC ×3 (08:13→16:49)
[2025-04-24] MEDS: KLOR-CON 20 MEQ PO ×2 (09:08→21:45)
[2025-04-24] MEDS: PROSCAR 5 MG PO (09:08)
[2025-04-24] MEDS: TOPROL XL 50 MG PO ×2 (09:08→21:45)
[2025-04-24] MEDS: LASIX 20 MG IV ×2 (09:08→15:31)
[2025-04-24] MEDS: PACERONE 200 MG PO ×3 (09:08→21:46)
[2025-04-24] MEDS: ELIQUIS 5 MG PO ×2 (09:08→21:47)
[2025-04-24] MEDS: FLOMAX 0.4 MG PO (09:08)
[2025-04-24] MEDS: VIBRAMYCIN 100 MG PO ×2 (09:08→21:44)
--- NOTE | 2025-04-24 10:34 | W.PN.HOSP.TC ---
Today's Communication/Plan
-
see plan
Assessment / Plan
Assessment / Plan
80y M with PMH significant for hypertension, DM-II and melanoma who presents to ED c/o 5 days of sore throat, cough and SPENCE.
Gen: NAD, AAOx3.
Eyes: EOMI, PERRLA, no scleral icterus.
Neck: supple.
CV: irreg/irreg, +S1/S2, no m/r/g.
Resp: B/L wheezes
Abd: +BS, soft, NT, ND
Skin: No rashes. 2+ B/L LE edema
Neuro: CN 2-12 intact, non-focal.
Psych: Normal mood and affect.
CXR:
1. Moderate asymmetric ground-glass opacity in the infrahilar region of the right lower lung. Diagnostic possibilities are (1) infectious pneumonia, (2) an inflammatory pneumonitis, or (3) scarring and subsegmental atelectasis.
2. Mild bilateral lung hyperinflation.
3. Mild cardiomegaly.
4. 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
Possible R Pneumonia:
-CXR above
-afebrile, no leukocytosis
-cont ceftriaxone/doxycycline for now
Acute CHF due to new Atrial Fibrillation:
-trop NEG x 4
-proBNP 1580
-check echo
-cont Amio/BB/Eliquis
-cont IV Lasix
-for TEECV tomorrow
-cards following
Other problems:
Morbid obesity due to excess calories
Essential Hypertension: cont BB
DM2: Diet controlled at home, a1c 6.7%, SSI/accuchecks
Hypokalemia, resolved
BPH: cont finasteride/alfuzosin.
FULL/Eliquis
Anticipated Discharge: 24 - 48 hours
Subjective/Interval History
-
Date of Service: April 24, 2025
Denies SOB.
Objective Data
-
Vital Signs:
Vital Signs
Temp Pulse Resp BP Pulse Ox
98.3 F 79 16 133/94 96
04/24/25 07:34 04/24/25 07:34 04/24/25 07:34 04/24/25 07:34 04/24/25 07:34
I&O
04/23/25 04/24/25 04/25/25
06:59 06:59 06:59
Intake Total 720 / 720
Output Total 1050 / 1050
Balance -1050 / -1050 720 / 720
--- NOTE | 2025-04-24 10:47 | W.PN.CARDCBS ---
Today's Communication / Plan
-
Maintain Eliquis 5 mg twice daily
Transesophageal echo and cardioversion on Friday
Amiodarone 200 mg 3 times daily
Maintain Lasix 20 mg IV twice daily
Impression / Plan
-
PCP: Dr. Barnes
Card: None
Impression:
Admitted with PNA and new A-fib 04/22/2025
CAP
Newly diagnosed paroxysmal atrial fibrillation of unclear duration
New start to chronic Eliquis therapy
Possible acute HF unknown EF
HTN
DM 2
Chronic lymphedema
Leg wound
Hypokalemia
Plan:
Newly diagnosed atrial fibrillation with poorly controlled ventricular rates, duration of atrial fibrillation unknown
Acute congestive heart failure with unknown ejection fraction
Suspected community-acquired pneumonia
Type 2 diabetes
Chronic lower extremity edema
Leg wound
Hypertension
Newly diagnosed atrial fibrillation with rates that are rapid at times, symptomatic and likely precipitating congestive heart failure.
He very likely will do best with rhythm control as opposed to rate control
Had a long discussion with the patient regarding rhythm control options. Importantly atrial fibrillation is of unknown duration and we have just started anticoagulation. Therefore our options for rate control would be to wait for at least 3 to 4
weeks of uninterrupted anticoagulation and plan for cardioversion or since she is symptomatic move more quickly towards cardioversion with transesophageal echo and cardioversion. Patient prefers to move forward with transesophageal echo and
cardioversion, therefore we will plan the following:
- Maintain Eliquis 5 mg twice daily
- Transesophageal echo and cardioversion on Friday
- Amiodarone 200 mg 3 times daily initiated Wednesday, April 23, 2025
I would envision maintaining amiodarone while we get further information regarding any underlying structural heart disease and while we reassess him as an outpatient (AF ablation vs AAD Rx)
- Given rapid rates I increase Toprol-XL to 50 mg twice daily starting 04/23/25
He does have a component of congestive heart failure with unknown ejection fraction
- IV diuresis with Lasix 20 mg IV BID.
Overnight 04/23 ->04/24 weight is down 3.5 pounds (fluid balance not accurately assessed)
Maintain Lasix 20 mg IV twice daily
- Will get a sense of any underlying structural heart disease at time of SID on Friday
Progress Note - Sand Tester
Subjective
Date of Service: April 24, 2025
Objective
Labs:
04/23/25 06:21
Labs
Hgb 12.8 g/dL (13.0-18.0) L 04/23/25 06:21
Hct 38.7 % (39.0-52.0) L 04/23/25 06:21
Plt Count 236 10^3/uL (130-400) 04/23/25 06:21
Sodium 141 mmol/L (135-145) 04/23/25 06:21
Potassium 4.2 mmol/L (3.5-5.1) 04/23/25 06:21
BUN 24 mg/dl (9-20) H 04/23/25 06:21
Creatinine 1.0 mg/dL (0.7-1.3) 04/23/25 06:21
Glucose 205 mg/dl (70-99) H 04/23/25 06:21
Troponins
04/22/25 04/23/25 04/23/25
22:33 06:21 12:28
Troponin I 0.013 0.020 D < 0.012 D
04/24/25
05:28
Troponin I 0.020
Vital Signs and I&O:
Vital Signs
Temp Pulse Resp BP Pulse Ox
98.3 F 79 16 133/94 96
04/24/25 07:34 04/24/25 07:34 04/24/25 07:34 04/24/25 07:34 04/24/25 07:34
Vital Signs
Temp Pulse Resp BP Pulse Ox
98.3 F 79 16 133/94 96
04/24/25 07:34 04/24/25 07:34 04/24/25 07:34 04/24/25 07:34 04/24/25 07:34
Intake & Output
04/22/25 04/23/25 04/24/25 04/25/25
06:59 06:59 06:59 06:59
Intake Total 720 / 720
Output Total 1050 / 1050
Balance -1050 / -1050 720 / 720
[2025-04-24 10:58] VITALS: BP 130/79
[2025-04-24 11:19] LABS: Blood Urea Nitrogen 33 mg/dl (9-20); Calcium 9.4 mg/dl (8.4-10.2); Carbon Dioxide 33 mmol/L (22-30); Chloride 103 mmol/L (98-107); Estimated Creatinine Clearance 70 ml/min; Glucose 158 mg/dl (70-99); Potassium 3.8 mmol/L (3.5-5.1); Sodium 141 mmol/L (135-145); eGFR > 60.00
[2025-04-24 11:24] LABS: Glucose - Point of Care 134 mg/dl (70-99)
--- NOTE | 2025-04-24 13:27 | CM ---
Patient seen at bedside
npo after mn
Transesophageal echo and cardioversion on Friday
PLAN: home, CM to follow for needs
[2025-04-24 14:56] VITALS: BP 131/71
[2025-04-24 16:36] LABS: Glucose - Point of Care 132 mg/dl (70-99)
[2025-04-24 19:00] VITALS: BP 136/80
[2025-04-24 21:20] LABS: Glucose - Point of Care 182 mg/dl (70-99)
[2025-04-25] VITALS (7 sets, daily range): BP systolic 118–153; BP diastolic 60–94; BMI 42.7
[2025-04-25] MEDS: ROCEPHIN 1000 MG IV ×2 (00:04→23:15)
[2025-04-25] MEDS: STERILE WATER FOR INJECTION 10 ML IV ×2 (00:04→23:16)
[2025-04-25 07:30] LABS: Blood Urea Nitrogen 36 mg/dl (9-20); Calcium 9.1 mg/dl (8.4-10.2); Carbon Dioxide 33 mmol/L (22-30); Chloride 105 mmol/L (98-107); Estimated Creatinine Clearance 63 ml/min; Glucose 129 mg/dl (70-99); Potassium 3.9 mmol/L (3.5-5.1); Sodium 143 mmol/L (135-145); eGFR > 60.00
[2025-04-25 07:37] LABS: Glucose - Point of Care 131 mg/dl (70-99)
[2025-04-25] MEDS: LASIX 20 MG IV ×2 (07:48→15:16)
[2025-04-25] MEDS: FLOMAX 0.4 MG PO (07:48)
[2025-04-25] MEDS: PACERONE 200 MG PO (07:48)
[2025-04-25] MEDS: ELIQUIS 5 MG PO ×2 (07:48→19:45)
[2025-04-25] MEDS: TOPROL XL 50 MG PO (07:48)
[2025-04-25] MEDS: PROSCAR 5 MG PO (07:48)
[2025-04-25] MEDS: VIBRAMYCIN 100 MG PO ×2 (07:48→19:45)
[2025-04-25] MEDS: NOVOLOG FLEXPEN-LOW RESISTANCE SC ×2 (07:49→11:56)
[2025-04-25] MEDS: KLOR-CON PO (07:49)
--- NOTE | 2025-04-25 09:51 | W.PN.CARDCBS ---
Addendum entered and electronically signed by Kev Cote DO 04/25/25 13:55:
I saw and examined the patient.
The Label Pinker's note was reviewed and I agree with the note.
Comment:
Plan:
s/p successful SID/cv today
Bradycardia noted and will reduce Amiodarone to 200 mg daily and Toprol to 25 mg daily
Likely transition to oral lasix next 24 hrs
Cont anticoagulation
Discussed with family at bedside.
Original Note:
Today's Communication / Plan
-
Successful SID cardioversion today
Bradycardic with moravian of sinus rhythm reduce amiodarone to 200 mg daily and reduce Toprol to 25 mg daily
Continue IV diuresis for another 24 hours then consider transition to oral diuretic
Continue to monitor blood pressure over next 24 hours with likely resumption of lisinopril
Impression / Plan
-
PCP: Dr. Barnes
Card: None, initial consult Dr. Laurent Hurtado
Impression:
Admitted 04/22/2025 with cough and SOB
PNA/CAP
Newly diagnosed paroxysmal atrial fibrillation of unclear duration
s/p CV 04/25/2025
Acute heart failure with preserved ejection fraction
Bradycardia (Post CV)
New start to chronic Eliquis therapy
HTN
DM 2
Chronic lymphedema
Leg wound
Hypokalemia
SID 04/25/2025: EF 55 to 60%. No significant valvular disease. No left atrial appendage thrombus
Plan:
Admitted 04/22/2025 with cough and SOB found to have pneumonia, acute HF and AFib w/ RVR
Newly diagnosed atrial fibrillation with rates that are rapid at times, symptomatic and likely precipitating congestive heart failure.
Plan for rhythm control as patient symptomatic
Underwent successful SID/cardioversion 04/25/2025. Noted to be bradycardic back in sinus rhythm
- Amiodarone 200 mg 3 times daily initiated Wednesday, April 23, 2025. Decrease amiodarone to 200 mg daily given bradycardia with moravian of sinus rhythm
- New to Toprol-XL to 50 mg twice daily this admission for rate control. Patient now bradycardic with moravian of sinus rhythm. Decrease Toprol to 25 mg daily
- Maintain Eliquis 5 mg twice daily
- Can reassess him as an outpatient regarding AF ablation vs AAD Rx if pt should have additional episodes of atrial fibrillation
He does have a component of congestive heart failure with preserved ejection fraction, proBNP 1580
- Heart failure likely exacerbated by A-fib with rapid ventricular response of unknown duration
- Ongoing IV diuresis with Lasix 20 mg IV BID.
Weight down 10 lbs since admission
Continue Lasix 20 mg IV twice daily. Likely would benefit from being d/abraham on diuretic. May benefit from Aldactone or chlorthalidone for BP control
Hypertension
- Patient maintained on amlodipine, hydralazine, HCTZ and lisinopril as outpatient.
- Will need to monitor blood pressure with moravian of sinus rhythm.
- Reduce Toprol to 25 mg daily. Consider resumption of lisinopril and/or hydralazine as BP tolerates. May benefit from Aldactone or chlorthalidone for BP control
- Patient does have history of chronic lymphedema which may be exacerbated by amlodipine. If possible avoid resuming or restart at low dose
Plan discussed with patient and family at bedside
History of Present Illness:
Patient came to [facility] ER yesterday with a productive cough and was found to be in new A-fib with evidence of PNA and was admitted, cardiology is now consulted. Patient says that he saw his PCP coming up on 2 weeks ago for increased LE edema and
wounds. He was told he needed to see a geothermal operations manager immediately and was started on antibiotics. He says he saw the geothermal operations manager who continued the antibiotics but also started him on a steroid. He felt as though his LE edema and wounds were
improving, but then he started with URI symptoms including runny nose and a sore throat. No fevers or chills. He seemed to improve from URI symptoms and then progressed to increased cough resulting in chest pain and then SPENCE. He went to an urgent
care last night who then sent him to the ER that he recalls of being at the urgent care he was very short of breath which was new and different. In our ER he was in A-fib without known history of A-fib. There was evidence of PNA on CXR and there
was some question of possible acute HF given the proBNP of 1580 although he has chronic LE edema related to his lymphedema
Progress Note - [employer]
Subjective
Date of Service: April 25, 2025
Patient seen and examined. Patient's family at bedside. Underwent successful SID cardioversion earlier today.
Objective
Labs:
04/23/25 06:21
04/25/25 06:27
Labs
Hgb 12.8 g/dL (13.0-18.0) L 04/23/25 06:21
Hct 38.7 % (39.0-52.0) L 04/23/25 06:21
Plt Count 236 10^3/uL (130-400) 04/23/25 06:21
Sodium 143 mmol/L (135-145) 04/25/25 06:27
Potassium 3.9 mmol/L (3.5-5.1) 04/25/25 06:27
BUN 36 mg/dl (9-20) H 04/25/25 06:27
Creatinine 1.1 mg/dL (0.7-1.3) 04/25/25 06:27
Glucose 129 mg/dl (70-99) H 04/25/25 06:27
Troponins
04/22/25 04/23/25 04/23/25
22:33 06:21 12:28
Troponin I 0.013 0.020 D < 0.012 D
04/24/25
05:28
Troponin I 0.020
Vital Signs and I&O:
Vital Signs
Temp Pulse Resp BP Pulse Ox
97.8 F 63 16 149/94 95
04/25/25 07:40 04/25/25 07:40 04/25/25 07:40 04/25/25 07:40 04/25/25 07:40
Vital Signs
Temp Pulse Resp BP Pulse Ox
97.8 F 63 16 149/94 95
04/25/25 07:40 04/25/25 07:40 04/25/25 07:40 04/25/25 07:40 04/25/25 07:40
Intake & Output
04/23/25 04/24/25 04/25/25 04/26/25
06:59 06:59 06:59 06:59
Intake Total 720 / 720 960 / 960
Output Total 1050 / 1050
Balance -1050 / -1050 720 / 720 960 / 960
Physical Exam
Physical Exam
GEN: No distress, awake, Ox3, sitting in bed, obese
HEENT: supple, anicteric, mmm
LUNGS: CTA, no wheezes/rales
CV: Reg, S1/S2, no murmur, rub or gallop
ABD: Obese, soft, BS+, NT/ND
EXT: Trace to +1 bilateral lower extremity edema, no clubbing or cyanosis
NEURO: Gross non-focal
SKIN: No rash, warm, dry, pink
[2025-04-25 11:49] LABS: Glucose - Point of Care 145 mg/dl (70-99)
--- NOTE | 2025-04-25 12:20 | CM ---
Patient seen at bedside
Transesophageal echo and cardioversion today
discussed home health with patient & declines
states has appt with outpatient rehab at [place] Friday
PLAN: Home, declines VN
--- NOTE | 2025-04-25 14:17 | W.PN.HOSP.TC ---
Today's Communication/Plan
-
see bold
Assessment / Plan
Assessment / Plan
80y M with PMH significant for hypertension, DM-II and melanoma who presents to ED c/o 5 days of sore throat, cough and SPENCE.
CXR:
1. Moderate asymmetric ground-glass opacity in the infrahilar region of the right lower lung. Diagnostic possibilities are (1) infectious pneumonia, (2) an inflammatory pneumonitis, or (3) scarring and subsegmental atelectasis.
2. Mild bilateral lung hyperinflation.
3. Mild cardiomegaly.
4. 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
Possible R Pneumonia:
-CXR above
-afebrile, no leukocytosis
-cont ceftriaxone/doxycycline
-add Zyrtec, continue bronchodilators
Acute heart failure with preserved ejection fraction due to new Atrial Fibrillation:
-trop NEG x 4
-proBNP 1580
-s/p successful SID cardioversion 04/25/2025
-amiodarone reduced to 200 mg daily, Toprol reduced to 25 mg daily due to bradycardia
-cont IV Lasix, trend creatinine, trend daily weights
-possible transition to oral Lasix with discharge home tomorrow as per cardiology
Other problems:
Morbid obesity due to excess calories
Essential Hypertension: cont BB
DM2: Diet controlled at home, a1c 6.7%, SSI/accuchecks
Hypokalemia, resolved
BPH: cont finasteride/alfuzosin.
DVT prophylaxis�Eliquis
Full code
Total time spent to see the patient on the floor, examine the patient, review data and lab results, discuss treatment plan with patient, nursing staff around 35 minutes.
Physical exam
Gen: Obese, NAD, AAOx3.
Eyes: EOMI, PERRLA, no scleral icterus.
Neck: supple.
CV: Regular rate and rhythm, +S1/S2, no m/r/g.
Resp: B/L wheezes
Abd: +BS, soft, NT, ND
Skin: No rashes. Improving bilateral lower extremity edema noted
Neuro: CN 2-12 intact, non-focal.
Psych: Normal mood and affect.
Anticipated Discharge: Within 24 hours
Subjective/Interval History
-
Date of Service: April 25, 2025
Patient complains of rhinorrhea. He has a cough. Denies shortness of breath, denies dyspnea with activity. No fever, no vomiting.
Objective Data
-
Labs:
Laboratory Results
04/25/25
06:27
Sodium 143
Potassium 3.9
Chloride 105
Carbon Dioxide 33 H
BUN 36 H
Creatinine 1.1
Glucose 129 H
Calcium 9.1
Vital Signs:
Vital Signs
Temp Pulse Resp BP Pulse Ox
97.8 F 63 16 149/94 95
04/25/25 07:40 04/25/25 07:40 04/25/25 07:40 04/25/25 07:40 04/25/25 07:40
I&O
04/24/25 04/25/25 04/26/25
06:59 06:59 06:59
Intake Total 720 / 720 960 / 960
Balance 720 / 720 960 / 960
[2025-04-25] MEDS: ZYRTEC 10 MG PO (15:16)
[2025-04-25 16:23] LABS: Glucose - Point of Care 193 mg/dl (70-99)
[2025-04-25] MEDS: NOVOLOG FLEXPEN-LOW RESISTANCE 1 UNITS SC (17:16)
[2025-04-25] MEDS: KLOR-CON 20 MEQ PO (19:44)
[2025-04-25 21:32] LABS: Glucose - Point of Care 85 mg/dl (70-99)
[2025-04-26] MEDS: VENTOLIN NEBULES 2.5 MG INH (00:28)
[2025-04-26 03:30] VITALS: BP 147/70
[2025-04-26 06:00] VITALS: BMI 42.5
[2025-04-26 07:13] LABS: Blood Urea Nitrogen 40 mg/dl (9-20); Calcium 8.9 mg/dl (8.4-10.2); Carbon Dioxide 32 mmol/L (22-30); Chloride 104 mmol/L (98-107); Estimated Creatinine Clearance 50 ml/min; Glucose 133 mg/dl (70-99); Magnesium 1.9 mg/dl (1.6-2.3); Potassium 3.7 mmol/L (3.5-5.1); Sodium 142 mmol/L (135-145); eGFR 50.18
[2025-04-26 07:36] LABS: Glucose - Point of Care 172 mg/dl (70-99)
[2025-04-26 07:49] VITALS: BP 155/71
--- NOTE | 2025-04-26 08:29 | W.PN.CARDCBS ---
Addendum entered and electronically signed by Kev Cote DO 04/26/25 14:44:
I saw and examined the patient 845AM 04/26/2025
The Process Lead's note was reviewed and I agree with the note.
Comment:
Plan:
Remains sinus bradycardia. Toprol XL has been discontinued after being reduced. Continue amiodarone.
Continue Eliquis.
Patient is adamant about discharge.
We called and found out his outpatient medical regimen including hydralazine, metformin and HCTZ dosing.
His creatinine is rising and we will hold further Lasix.
Check BMP in the next 24 hours. If creatinine is improved, resume Lasix at 20 mg daily and continue to hold HCTZ.
Outpatient follow-up arranged.
Addendum entered and electronically signed by Kateryna Montes De Oca PA-C 04/26/25 10:19:
I called both of patient's pharmacies and they don't have Rx for his daily meds, just PRN meds. I called his PCP and got a med list. He takes amlodipine 10 mg daily, hydralazine 50 mg TID, HCTZ 25 mg daily and metformin 500 mg BID. He stopped taking
lisinopril 04/2024. Will give additional hydralazine 25 mg now for a total of 50 mg this AM and then continue 50 mg TID upon d/c to home. Will also give additional dose of amlodipine 5 mg now. Cardiology f/u being arranged.
Original Note:
Today's Communication / Plan
-
Possible d/c to home today, Cre is up to 1.4, Lasix IV held, could send home with outpatient repeat labs tomorrow and then start Lasix if Cre improved vs stay in the hospital again, but patient anxious for d/c
Remains in SR/SB, Toprol XL stopped by me, cont amiodarone
Consult to CM to check cost of Eliquis
Waiting for his pharmacy to open so I can see what doses of amlodipine and hydralazine he was taking at home
Impression / Plan
-
PCP: Dr. Barnes
Card: None, initial consult Dr. Laurent Hurtado
Impression:
Admitted 04/22/2025 with cough and SOB
PNA/CAP
Newly diagnosed paroxysmal atrial fibrillation of unclear duration
s/p successful SID/CV 04/25/2025
Acute heart failure with preserved ejection fraction
Bradycardia (Post CV)
New start to chronic Eliquis therapy
HTN
DM 2
Chronic lymphedema
Leg wound
Hypokalemia
SID 04/25/2025: EF 55 to 60%. No significant valvular disease. No left atrial appendage thrombus
Plan:
-Patient remains in SR on tele review by me 04/26/25 following successful SID/CV 04/25/25. Patient denies symptomatic change with christian of SR.
-New to Eliquis 5 mg BID (age 80, wt 122 kg, Cre 1.0). Will ask CM to check on cost, e-scribed to patient's pharmacy by me, but will need to figure out if he has a deductible to meet etc.
-New to Toprol-XL this admission and dose decreased to 25 mg dialy due to sinus bradycardia on tele following SID/CV 04/25/25, tele reviewed by me 04/26/25 and will hold Toprol XL due to bradycardia.
-Will continue amiodarone 200 mg daily to focus on rhythm control. Patient received a 1.4 gram load as of 04/26/25 AM
-Patient also diuresed for acute HFpEF, weight is down 11 lbs this admission with Lasix 20 mg IV BID. Patient was taking HCTZ 25 mg daily prior to admission. FABIOLA, Cre up to 1.4 on 04/26/25. Orders placed by me to hold Lasix 04/26/25 AM.
-Will stop HCTZ upon d/c and start Lasix 20 mg PO daily pending outpatient labs on 04/27/25.
-Patient declined VN so will arrange for a 1 week HF f/u visit in the office.
-Outpatient dose of lisinopril 30 mg daily has been on hold since admission and now remains on hold due to FABIOLA. Pending outpatient labs would restart lisinopril 20 mg daily
-Outpatient dose of hydralazine unknown and was not continued dueing this admission. Called the [facility] pharmacy listed and they do not fill his regular Rx. I then called the [facility] and they don't open unitl 0900. Will try calling again later to find
out what dose of hydralazine he takes at home, regardless will give a dose of hydralazine 25 mg now.
-Outpatient dose of amlodipine unknown, as noted above I am waiting for the [facility] pharmacy to open 04/26/25 and will call again, but for now ordered amlodipine 5 mg daily 04/26/25.
-Patient is anxious for d/c to home 04/26/25, if patient can complete outpatient labs 04/27/25 then would be amenable to d/c to home and restart Lasix PO if labs stable.
History of Present Illness:
Patient came to [facility] ER yesterday with a productive cough and was found to be in new A-fib with evidence of PNA and was admitted, cardiology is now consulted. Patient says that he saw his PCP coming up on 2 weeks ago for increased LE edema and
wounds. He was told he needed to see a mold design engineer immediately and was started on antibiotics. He says he saw the mold design engineer who continued the antibiotics but also started him on a steroid. He felt as though his LE edema and wounds were
improving, but then he started with URI symptoms including runny nose and a sore throat. No fevers or chills. He seemed to improve from URI symptoms and then progressed to increased cough resulting in chest pain and then SPENCE. He went to an urgent
care last night who then sent him to the ER that he recalls of being at the urgent care he was very short of breath which was new and different. In our ER he was in A-fib without known history of A-fib. There was evidence of PNA on CXR and there
was some question of possible acute HF given the proBNP of 1580 although he has chronic LE edema related to his lymphedema
Progress Note - Home Health Assistant
Subjective
Date of Service: April 26, 2025
He feels well and wants to go home
Objective
Labs:
04/23/25 06:21
04/26/25 06:29
Labs
Hgb 12.8 g/dL (13.0-18.0) L 04/23/25 06:21
Hct 38.7 % (39.0-52.0) L 04/23/25 06:21
Plt Count 236 10^3/uL (130-400) 04/23/25 06:21
Sodium 142 mmol/L (135-145) 04/26/25 06:29
Potassium 3.7 mmol/L (3.5-5.1) 04/26/25 06:29
BUN 40 mg/dl (9-20) H 04/26/25 06:29
Creatinine 1.4 mg/dL (0.7-1.3) H 04/26/25 06:29
Glucose 133 mg/dl (70-99) H 04/26/25 06:29
Troponins
04/23/25 04/24/25
12:28 05:28
Troponin I < 0.012 D 0.020
Vital Signs and I&O:
Vital Signs
Temp Pulse Resp BP Pulse Ox
98.2 F 55 17 155/71 97
04/26/25 07:49 04/26/25 07:49 04/26/25 07:49 04/26/25 07:49 04/26/25 07:49
Vital Signs
Temp Pulse Resp BP Pulse Ox
98.2 F 55 17 155/71 97
04/26/25 07:49 04/26/25 07:49 04/26/25 07:49 04/26/25 07:49 04/26/25 07:49
Intake & Output
04/24/25 04/25/25 04/26/25 04/27/25
06:59 06:59 06:59 06:59
Intake Total 720 / 720 960 / 960 1200 / 1200
Balance 720 / 720 960 / 960 1200 / 1200
Physical Exam
Physical Exam
GEN: NAD. AAOx3
HEENT: EOMI, MMM, wearing glasses
LUNGS: RA.
CV: SR/SB on tele
EXT: +1-2 pitting B/L LE edema with multiple abrasions and possible venous stasis ulcers
NEURO: Gross non-focal
SKIN: No rash
[2025-04-26] MEDS: ELIQUIS 5 MG PO (08:54)
[2025-04-26] MEDS: ZYRTEC 10 MG PO (08:54)
[2025-04-26] MEDS: PACERONE 200 MG PO (08:54)
[2025-04-26] MEDS: KLOR-CON 20 MEQ PO (08:54)
[2025-04-26] MEDS: NOVOLOG FLEXPEN-LOW RESISTANCE 1 UNITS SC (08:54)
[2025-04-26] MEDS: FLOMAX 0.4 MG PO (08:54)
[2025-04-26] MEDS: VIBRAMYCIN 100 MG PO (08:54)
[2025-04-26] MEDS: PROSCAR 5 MG PO (08:54)
[2025-04-26] MEDS: APRESOLINE 25 MG PO ×2 (09:10→11:01)
[2025-04-26] MEDS: LASIX IV (09:10)
[2025-04-26] MEDS: NORVASC 5 MG PO ×2 (09:10→11:01)
--- NOTE | 2025-04-26 09:18 | W.PN.HOSP.TC ---
Today's Communication/Plan
-
Cleared by cardiology for discharge today
Assessment / Plan
Assessment / Plan
80y M with PMH significant for hypertension, DM-II and melanoma who presents to ED c/o 5 days of sore throat, cough and SPENCE.
CXR:
1. Moderate asymmetric ground-glass opacity in the infrahilar region of the right lower lung. Diagnostic possibilities are (1) infectious pneumonia, (2) an inflammatory pneumonitis, or (3) scarring and subsegmental atelectasis.
2. Mild bilateral lung hyperinflation.
3. Mild cardiomegaly.
4. 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
Possible R Pneumonia:
-CXR above
-afebrile, no leukocytosis
-imroving on ceftriaxone/doxycycline
-added Zyrtec, continue bronchodilators
-medically stable for discharge on doxycycline to complete a 7-day course, follow-up PCP in 1 week
Acute heart failure with preserved ejection fraction due to new Atrial Fibrillation:
-trop NEG x 4
-proBNP 1580
-s/p successful SID cardioversion 04/25/2025
-Resolved with IV Lasix
-Cardiology recommends discharge on amiodarone 200 mg daily, Eliquis 5 mg twice a day
-Metoprolol discontinued secondary to bradycardia, which patient reports is known at baseline
Essential hypertension
- Cardiology recommends discharge on hydralazine 50 mg 3 times a day, amlodipine 10 mg daily
- Previous home hydrochlorothiazide and lisinopril have been discontinued
Acute kidney injury
-From diuresis
-Cardiology has provided patient with blood slip for repeat BMP, and will give patient further directions on taking Lasix based on the results
Other problems:
Morbid obesity due to excess calories
DM2: Diet controlled at home, a1c 6.7%, SSI/accuchecks
Hypokalemia, resolved
BPH: cont finasteride/alfuzosin.
DVT prophylaxis�Eliquis
Full code
Physical exam
Gen: Obese, NAD, AAOx3.
Eyes: EOMI, PERRLA, no scleral icterus.
Neck: supple.
CV: Regular rate and rhythm, +S1/S2, no m/r/g.
Resp: B/L wheezes
Abd: +BS, soft, NT, ND
Skin: No rashes. Improving bilateral lower extremity edema noted
Neuro: CN 2-12 intact, non-focal.
Anticipated Discharge: Today
Subjective/Interval History
-
Date of Service: April 26, 2025
Patient reports feeling better, and is eager for discharge today. He reports his cough and rhinorrhea are improved. Denies shortness of breath at rest, denies shortness of breath with activity. No chest pain, no palpitations. No fever, no
vomiting.
Objective Data
-
Labs:
Laboratory Results
04/26/25
06:29
Sodium 142
Potassium 3.7
Chloride 104
Carbon Dioxide 32 H
BUN 40 H
Creatinine 1.4 H
Glucose 133 H
Calcium 8.9
Vital Signs:
Vital Signs
Temp Pulse Resp BP Pulse Ox
98.2 F 55 17 155/71 97
04/26/25 07:49 04/26/25 07:49 04/26/25 07:49 04/26/25 07:49 04/26/25 07:49
I&O
04/25/25 04/26/25 04/27/25
06:59 06:59 06:59
Intake Total 960 / 960 1200 / 1200
Balance 960 / 960 1200 / 1200
--- NOTE | 2025-04-26 09:43 | W.PN.UPDATE ---
Update Note
Progress Note Update
I called both of patient's pharmacies and they don't have Rx for his daily meds, just PRN meds. I called his PCP and got a med list. He takes amlodipine 10 mg daily, hydralazine 50 mg TID, HCTZ 25 mg daily and metformin 500 mg BID. He stopped taking
lisinopril 04/2024. Will give additional hydralazine 25 mg now for a total of 50 mg this AM and then continue 50 mg TID upon d/c to home. Will also give additional dose of amlodipine 5 mg now. Cardiology f/u being arranged.
--- NOTE | 2025-04-26 10:50 | CM ---
Patient seen bedside.
Per patient plan home today.
Patient denies home care needs.
Friend will transport home.
IMM reviewed and signed.
Kwame cost $43 per [facility] pharmacy.
Kwame coupon provided.
Plan: home no needs.
--- NOTE | 2025-04-26 11:36 | W.DCSUMMARY ---
Discharge Summary
Discharge Data
Date of Admission: 04/23/25
Date of Discharge: 04/26/25
-
Pending Results: No
Hospital Course
Discharge diagnosis:
Possible pneumonia
Acute heart failure with preserved ejection fraction
New atrial fibrillation
Essential hypertension
Acute kidney injury
Morbid obesity due to excess calories
Diet-controlled diabetes
Hypokalemia
Benign prostatic hypertrophy
Melanoma
Consults: Cardiology
CXR:
1. Moderate asymmetric ground-glass opacity in the infrahilar region of the right lower lung. Diagnostic possibilities are (1) infectious pneumonia, (2) an inflammatory pneumonitis, or (3) scarring and subsegmental atelectasis.
2. Mild bilateral lung hyperinflation.
3. Mild cardiomegaly.
4. 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
Procedures:
04/25/2025: SID guided cardioversion
Hospital course:
80-year-old male with a past medical history of hypertension, diet-controlled diabetes, BPH, and obesity who presented with cough and shortness of breath. Chest x-ray showed possible pneumonia. He was treated with IV Rocephin and oral doxycycline.
Patient was also found to have new onset atrial fibrillation and acute heart failure with a preserved ejection fraction. Patient was seen in conjunction with cardiology. He was started on Eliquis, and diuresed with IV Lasix. Patient had acute
kidney injury from diuresis. His creatinine was 1.4 on the day of discharge. Cardiology provided the patient with a lab slip to get a repeat BMP outpatient. They will then call him with instructions regarding further treatment with Lasix.
Patient underwent SID guided cardioversion on 04/25/2025, resulting in catholic of sinus rhythm. Patient was started on metoprolol and amiodarone. He was bradycardic, and cardiology discontinued his metoprolol. His amiodarone was reduced to 200
mg daily.
For his hypertension, cardiology recommends continuing amlodipine 10 mg daily, hydralazine 100 mg 3 times daily. Cardiology recommends permanently discontinuing his lisinopril and his hydrochlorothiazide.
Patient reports that his shortness of breath has resolved. His cough and rhinorrhea have improved. He is medically stable and cleared by cardiology for discharge on the above regimen. He will also be discharged on doxycycline to complete a 7-day
course. He needs to follow-up with his primary care doctor in 1 week, and cardiology in the office as directed.
Disposition: Home self-care
Discharge planning: Required 37 minutes
Discharge Plan
-
Patient Disposition: Home (Routine Discharge)
Discharge Diagnosis/Procedures: Acute heart failure preserved ejection fraction, paroxysmal atrial fibrillation with successful transesophageal echocardiogram and cardioversion 04/25/25, possible pneumonia
Condition: Good
Diet: 2 Gram Sodium and Restrict fluids to 64 oz
Activity: As tolerated
Driving Restrictions: No driving for 24 hours
Bathing Restrictions: None
Blood Work: -Check nonfasting blood work tomorrow, an electronic order was sent to [facility] and a paper slip was also given at discharge. We are waiting for the results of your kidney function and if kidney function is stable then we will start you
on Lasix (furosemide) 20 mg once a day to prevent recurrent fluid buildup and heart failure
Specialty Instructions: Weigh Daily- Call MD for wt gain/loss 3 lbs overnight/5 lbs in 1 week
Stand Alone Forms: DC Instructions- Cath/EP Lab
Referrals:
Laurent Hurtado MD [Active, Cardiology] - 05/03/25 10:20 am
Referral Note: You have an appointment to see Dr. Hurtado's physician marketing administrative assistant, Cher, at the [place] office on 05/03/2025 at 10:20 AM. Please call [phone] if you need to reschedule
Nayla Barnes MD [Non-Admitting Privileges, Internal Medicine]
Additional Discharge Medication Instructions: -Start taking amiodarone 200 mg once a day to help keep heart in rhythm
-Start taking Eliquis 5 mg twice a day to prevent blood clot and stroke due to atrial fibrillation
-Take your usual dose of hydralazine 50 mg three times a day
-Take your usual dose of amlodipine 10 mg once a day
-STOP taking HCTZ (hydrochlorothiazide)
-STOP taking lisinopril, although Dr. Barnes's office said you stopped taking this med 04/2025
Prescriptions:
New
Eliquis 5 mg Tablet
5 mg PO BID Qty: 60 11RF
amiodarone 200 mg Tablet
200 mg PO DAILY Qty: 30 11RF
potassium chloride 20 mEq Packet
20 meq PO DAILY Qty: 30 3RF
hydralazine 50 mg Tablet
50 mg PO TID Qty: 90 3RF
amlodipine 10 mg tablet
10 mg PO DAILY Qty: 30 0RF
doxycycline hyclate 100 mg Capsule
100 mg PO Q12 4 Days Qty: 8 0RF
cetirizine 10 mg Tablet
10 mg PO DAILY Qty: 30 0RF
Continued
finasteride 5 mg Tablet
5 mg PO DAILY
alfuzosin 10 mg Tablet Extended Release 24 Hr
10 mg PO DAILY
metformin 500 mg tablet
500 mg PO BID
Discontinued
amlodipine
hydralazine
TID
lisinopril 30 mg tablet
30 mg PO DAILY
hydrochlorothiazide 25 mg tablet
25 mg PO DAILY
Discharge Orders:
Discharge Patient (As Directed); Ordered 04/26/25
Ordered By: Sandoval Menard
Discharge Date and Time
Discharge Date/Time: 04/26/25 13:21
Print Language: [id number]
[2025-04-26 11:44] VITALS: BP 148/73
[2025-04-26 11:50] LABS: Glucose - Point of Care 143 mg/dl (70-99)
== END 2025-04-26 13:21 | disposition home or self-care (01) | DRG 193 ==
LOC: 3 WEST ACU 02:22
PROVIDERS: Internal Medicine; Student in an Organized Health Care Education/Training Program; ADMITTING PHYSICIAN Hospitalist; ATTENDING PHYSICIAN Family Medicine; EMERGENCY PHYSICIAN Emergency Medicine; OTHER PHYSICIAN Internal Medicine Cardiovascular Disease
PROC: B24BZZ4 Ultrasonography of Heart with Aorta, Transesophageal (ICD-10-PCS; 2025-04-25)
PROC: 5A2204Z Restoration of Cardiac Rhythm, Single (ICD-10-PCS; 2025-04-25)
DX: J18.9 Pneumonia, unspecified organism (principal); I50.31 Acute diastolic (congestive) heart failure; N17.9 Acute kidney failure, unspecified; I48.0 Paroxysmal atrial fibrillation; I11.0 Hypertensive heart disease with heart failure; E11.65 Type 2 diabetes mellitus with hyperglycemia; E87.6 Hypokalemia; N40.0 Benign prostatic hyperplasia without lower urinary tract symptoms; Z87.891 Personal history of nicotine dependence; E66.01 Morbid (severe) obesity due to excess calories; C43.9 Malignant melanoma of skin, unspecified
CPT/HCPCS: 71046; 80048; 80053; 80061; 82962; 83036; 83605; 83735; 83880; 84443; 84484; 85025; 85027; 87070; 87205; 92960; 93005; 93312; 93320; 93325; 94640; 96374; 96375; 99285